=== PATIENT | female | born 1990 ===

== ENCOUNTER 2020-11-15 15:19 | Emergency (ER) | payer OTHER ==
[~2020-11-15] VITALS: Ht 170.2 cm; Wt 59.0 kg
== END 2020-11-15 17:06 | disposition home or self-care (01) ==
LOC: ER 15:19
DX: S91.141A Puncture wound with foreign body of right great toe without damage to nail, initial encounter (principal); W45.8XXA Other foreign body or object entering through skin, initial encounter; Y93.89 Activity, other specified; Y92.89 Other specified places as the place of occurrence of the external cause; Y99.8 Other external cause status